=== PATIENT | male | born 1990 | race Caucasian/White ===

== ENCOUNTER 2025-10-27 10:43 | Outpatient (AMB) | payer OTHER, SELFPAY ==
[2025-10-27 11:03] VITALS: BP 164/100; PULSE 86; RESP 18; O2SAT 96; BMI 29.4
--- NOTE | 2025-10-27 11:03 | MHC.PC.OV ---
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 / High blood pressure RE Tube Balancer Required: No Accompanied by: Self / Same As Patient Allergies sulfamethoxazole (From Bactrim) Adverse Reaction (Severe, Verified 10/27/25 11:26) Unconscious trimethoprim (From Bactrim) Adverse Reaction (Severe, Verified 10/27/25 11:26) Unconscious Medication List - Last Reconciled 10/27/25 by JOY Zuniga guselkumab (Tremfya Pen) 200 mg subcut Q4W Tobacco use date assessed: 10/27/25 Dental Screening Dental Screen Date: 10/27/25 Did you have a dental visit in the last 12 months?: Yes Did you have a dental problem in the last 6 months where you did not have access to dental care?: No Was dental information given to patient?: Patient has dentist HPI DIETITIAN THERAPEUTIC / High blood pressure RE HPI Details Previous PCP: [facility] primary Last visit: while ago Last PE: over two years Specialist: dermatology, [facility] OBGYN:n/a Past medical history: htn/psoriasis Medications: Family HX: father htn, DM2, Problem: The patient is a 35 year old male presenting to establish primary care, manage elevated blood pressure, and for a wellness visit. He has not seen a primary care provider in over two years. The primary concern is elevated blood pressure, which he wishes to manage without medication. He monitors his blood pressure at home and noted a reading of 133/82 mmHg this morning. He reports his blood pressure was better two years ago and believes the change is diet-related, acknowledging a high salt intake. His father has a history of high blood pressure and type 2 diabetes. Last week, the patient was diagnosed with a sinus infection at an urgent care center and was prescribed amoxicillin. He has also been taking DayQuil for his symptoms, which are now improving. The patient has a history of psoriasis, for which he sees a hoop driving machine operator at [facility] via telehealth twice a year. He also requested comprehensive blood work, including a testosterone level check, reporting fatigue. Health Maintenance As this is an initial visit to establish care, baseline health screening is indicated. Comprehensive fasting blood work, including a testosterone level due to his complaint of fatigue, has been ordered. A follow-up visit for a complete physical and review of lab results is scheduled in seven weeks. 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 - Diet: Reports a preference for savory foods and acknowledges a high salt intake. - Caffeine: Drinks one cup of coffee each morning. - Alcohol: Reports drinking about six beers per week and is participating in October. - Exercise: Reports exercising four times a week. - Sleep: Reports sleeping well. Results - Labs: None reviewed. - Tests and Diagnostics: Patient reports a home blood pressure reading of 133/82 mmHg. [facility] Medical History (Updated 10/29/25 @ 00:07 by JOY Zuniga) Psoriasis HTN (hypertension) Family History Father Type 2 diabetes mellitus HTN (hypertension) Social History Alcohol intake: current Patient Tobacco Use Status: Never used Tobacco e-Cigarette/Vaping Use: Never Used Current occupational status: employed Cognitive needs: No Hearing needs: No Vision needs: No Questionnaire PHQ-9 Over the last 2 weeks, how often have you been bothered by any of the following problems? 1. Little interest or pleasure in doing things: not at all 2. Feeling down, depressed, or hopeless: not at all 3. Trouble falling or staying asleep, or sleeping too much: not at all 4. Feeling tired or having little energy: not at all 5. Poor appetite or overeating: not at all 6. Feeling bad about yourself - or that you are a failure or have let yourself or your family down: not at all 7. Trouble concentrating on things, such as reading the newspaper or watching television: not at all 8. Moving or speaking so slowly that other people could have noticed. Or the opposite - being so fidgety or restless that you have been moving around a lot more than usual: not at all 9. Thoughts that you would be better off or of hurting yourself in some way: not at all Total score: 0 Depression Screening Interpretation: Negative Depression Screening Done: Yes 77907 - PHQ-9 Billing: Yes Source: Developed by Drs. Kev Turner, Beth Figueroa, Mike Jaeger and colleagues, with an educational rosalinda from [employer]. Thrive Questionnaire Date Thrive assessed: 10/27/25 I am a: Patient What is your living situation today?: I have a steady place to live Within the past 12 months, did the food you bought not last and you didn't have the money to get more?: Never true Within the past 12 months, did you worry whether your food would run out before you got money to buy more?: Never true Do you have trouble paying for medicines?: No Do you have trouble getting transportation to medical appointments?: No Do you have trouble paying your heating and electricity bill?: No Do you have trouble taking care of your child, family member or friend?: No Do you have trouble with day-to-day activities such as bathing, preparing meals, shopping, managing finances, etc.?: No Are you currently unemployed and looking for a job?: No Are you interested in more education?: No Currently or been in a relationship where the following occur: No concerns reported THRIVE Score: 0 AUDIT C Alcohol Use Questionnaire (AUDIT-C) 1. How often do you have a drink containing alcohol?: 4 or more times a week 2. How many drinks containing alcohol do you have on a typical day when you are drinking?: 1 or 2 3. How often do you have six or more drinks on one occasion?: Less than monthly Total Score: 5 BRANDIE-7 AMB Questionnaire BRANDIE-7 Date BRANDIE - 7 assessed: 10/27/25 Feeling nervous, anxious, or on edge: 0 = Not at all Not being able to stop or control worryin = Not at all Worrying too much about different things: 0 = Not at all Trouble relaxin = Not at all Being so restless that it is hard to sit still: 0 = Not at all Becoming easily annoyed or irritable: 0 = Not at all Feeling afraid as if something awful might happen: 0 = Not at all Total BRANDIE-7 score (0-4 normal; 5-9 mild; 10-14 moderate; 15-21 severe): 0 Source: Developed by Drs. Kev Turner, Beth Figueroa, Mike Jaeger and colleagues, with an educational rosalinda from [employer]. BRANDIE-7 Assessment Billing BRANDIE-7 Assessment Tool: BRANDIE-7 Assessment 95778 Review of Systems Narrative Review of Systems - Constitutional: Reports fatigue. - Sleep: Denies sleep problems. - ENT: Reports improving symptoms of a recent sinus infection. - Musculoskeletal: Denies calf pain. Const Reports fatigue and Denies headache(s) Eyes Denies loss of vision ENT Denies vertigo, Denies dizziness, Denies headache(s) and Denies sore throat Card Denies chest pain, Denies leg edema and Denies lightheadedness Resp Denies cough, Denies hemoptysis and Denies wheezing GI Denies abdominal pain, Denies melena, Denies constipation, Denies diarrhea and Denies vomiting Denies dysuria, Denies urinary frequency and Denies urinary urgency Musc Denies arthralgias, Denies joint swelling, Denies numbness and Denies tingling Neuro Denies Abnormal speech present, Denies behavioral changes, Denies vertigo, Denies dizziness, Denies headache(s), Denies loss of vision, Denies memory loss, Denies numbness and Denies tingling Psych Denies anxiety, Denies behavioral changes, Denies depression, Denies memory loss and Denies panic attacks Endo Reports fatigue Lev/Lymph Denies easy bleeding and Denies easy bruising Aller/Immun Denies wheezing Physical exam (Primary Care) Vital Signs: Last Vital Signs Pulse 86 10/27/25 11:03 Resp 18 10/27/25 11:03 BP 148/100 H 10/27/25 11:16 Pulse Ox 96 10/27/25 11:03 Oxygen Delivery Method Room Air 10/27/25 11:03 BMI result Body Mass Index 29.4 Tobacco/Smoking Status: Tobacco use Status Tobacco use date assessed 10/27/25 10/27/25 11:17 Patient Tobacco Use Status Never used Tobacco 10/27/25 11:17 e-Cigarette/Vaping Use Never Used 10/27/25 11:17 PHQ-9: PHQ-9 Score PHQ-9: Total score 0 10/27/25 11:36 Depression Screening Interpretation: Negative Thrive Assessment: Date of Thrive Assessment Date Thrive assessed 10/27/25 10/27/25 11:17 Currently or been in a relationship where the following occur: No concerns reported Narrative Physical Exam - Cardiovascular: Heart auscultation reveals good heart sounds. - Abdomen: Soft, non-tender to gentle palpation, with bowel sounds present on auscultation. - Extremities: Calves are non-tender. Const General: healthy appearing, no acute distress, alert and awake Nutritional Appearance: well nourished Orientation/consciousness: oriented to person, oriented to place and oriented to time HENMT Ears: TM's normal bilaterally General nose exam: Normal nasal mucous membranes and turbinates present Eyes Conjunctivae: conjunctivae normal Sclerae: sclerae normal Pupils: Equal, round and reactive pupils present Neck Neck: Yes no lymphadenopathy and Yes no JVD Thyroid: Thyroid normal Carotids: no bruits Resp Effort & Inspection: normal respiratory effort and not tachypneic Auscultation: no crackles, no rales, no rhonchi and no wheezes Cardio Rate: regular rate Rhythm: regular rhythm Heart sounds: no murmurs and normal S1 and S2 GI Palpation (GI): Soft to palpation, nontender, no hepatomegaly and no splenomegaly Auscultation: normal bowel sounds Skin General skin exam: no rashes or lesions noted and dry skin Neuro General: oriented to person, oriented to place and oriented to time Cranial nerves: Yes Equal, round and reactive pupils present Speech: No Abnormal speech present Gait exam (Neuro): Normal gait present Motor exam (neuro): no tremor noted Extrem Right upper extremity: full ROM Left upper extremity: full ROM Right lower extremity: full ROM; no edema Left lower extremity: full ROM; no edema Psych Mental Status: mental status grossly normal Speech and movement: Normal speech and movement present Affect: normal affect Attitude: cooperative Thought process: Normal thought process present Coding Level of Care Code New Pt Level 4 (33049) Diagnoses Hypertension, unspecified type I10 Hypertension type: unspecified Fatigue, unspecified type R53.83 Fatigue type: unspecified Psoriasis L40.9 Acute sinusitis, recurrence not specified, unspecified location J01.90 Sinusitis location: unspecified location Recurrence: not specified as recurrent Additional Codes BRANDIE-7 Assessment Billing - BRANDIE-7 Assessment Tool: BRANDIE-7 Assessment 79251 ([id number]) PHQ-9 - 79896 - PHQ-9 Billing: Yes ([id number]) Time Spent (min) 39 Assessment & Plan Assessment & Plan (1) HTN (hypertension): Code(s): I10 - Essential (primary) hypertension Category: Medical Qualifiers: Hypertension type: unspecified Qualified Code(s): I10 - Essential (primary) hypertension Plan: The patient's elevated blood pressure is likely multifactorial, with contributing factors including a high-salt diet, alcohol consumption, job-related stress, and a family history of hypertension. He is motivated to attempt lifestyle modifications before initiating pharmacotherapy. A significant reduction in dietary sodium, continuation of regular exercise, and reduced alcohol intake were recommended. He was also advised he could try a nitric oxide supplement. He will monitor and log his blood pressure at home twice daily and bring his cuff to the next visit for calibration. A follow-up appointment is scheduled in four weeks to recheck his blood pressure. Potential first-line medications, such as lisinopril or losartan, were discussed should his blood pressure remain elevated (2) Fatigue: Code(s): R53.83 - Other fatigue Category: Medical Qualifiers: Fatigue type: unspecified Qualified Code(s): R53.83 - Other fatigue Plan: Reports ongoing increased tiredness. Labs ordered including testosterone levels to further evaluate. (3) Psoriasis: Code(s): L40.9 - Psoriasis, unspecified Category: Medical Plan: The patient has a known history of psoriasis. He will continue to follow up with his hoop driving machine operator for management. Continue Tremfya 200 mg subQ q.4 weeks (4) Acute sinusitis: Code(s): J01.90 - Acute sinusitis, unspecified Category: Medical Qualifiers: Sinusitis location: unspecified location Recurrence: not specified as recurrent Qualified Code(s): J01.90 - Acute sinusitis, unspecified Plan: The patient was recently diagnosed with a sinus infection at an urgent care and is reporting improvement in his symptoms on his current treatment. He will continue his course of amoxicillin as prescribed. Plan Plan Patient was informed and verbally consented to the use of an ambient scribe for clinic note documentation during this visit. 1. Hypertension The patient's elevated blood pressure is likely multifactorial, with contributing factors including a high-salt diet, alcohol consumption, job-related stress, and a family history of hypertension. He is motivated to attempt lifestyle modifications before initiating pharmacotherapy. A significant reduction in dietary sodium, continuation of regular exercise, and reduced alcohol intake were recommended. He was also advised he could try a nitric oxide supplement. He will monitor and log his blood pressure at home twice daily and bring his cuff to the next visit for calibration. A follow-up appointment is scheduled in four weeks to recheck his blood pressure. Potential first-line medications, such as lisinopril or losartan, were discussed should his blood pressure remain elevated. 2. Psoriasis The patient has a known history of psoriasis. He will continue to follow up with his hoop driving machine operator for management. 3. Acute Sinusitis The patient was recently diagnosed with a sinus infection at an urgent care and is reporting improvement in his symptoms on his current treatment. He will continue his course of amoxicillin as prescribed. Discussion Notes I had a detailed discussion with the patient regarding his elevated blood pressure. I explained the potential long-term risks, including effects on his kidneys, eyes, and heart, as well as the risk of stroke. We reviewed lifestyle modifications, including a low-salt diet, reduced alcohol intake, and continuing his exercise regimen, as the primary approach to management, which aligns with his preference to avoid medication. I also mentioned nitric oxide supplements as a natural option he could try. I outlined the plan for him to monitor his blood pressure at home, keep a log, and follow up in four weeks for a recheck. We discussed that if his blood pressure remains high, we would need to consider starting a medication, and I mentioned the risks versus benefits of doing so. I ordered fasting labs for a comprehensive health screen and scheduled a complete physical in seven weeks to review the results. Patient Instructions - Significantly reduce the salt in your diet to help lower your blood pressure. - Continue your regular exercise routine. - Work on reducing your alcohol intake. - You can try taking a nitric oxide supplement, which may help lower your blood pressure. - Check your blood pressure at home in the morning and at night. - Keep a written log of your blood pressure readings to bring to your next appointment. - Continue taking the amoxicillin for your sinus infection until you finish the prescription. - Please go to a lab to have your blood drawn. - Remember this is a fasting test, so do not eat or drink anything (except water) for 8 to 12 hours beforehand. - You have a follow-up visit in 4 weeks to check just your blood pressure. - You will have another visit in 7 weeks for a full physical and to review your lab results. - Bring your home blood pressure machine to your next appointment so we can compare its readings to ours. Orders: Orders Comprehensive Leroy. Panel Fast 10/27/25 R53.83 - Other fatigue, Z00.00 - Encounter for general adult medical examination without abnormal findings Lipid Panel 10/27/25 R53.83 - Other fatigue, Z00.00 - Encounter for general adult medical examination without abnormal findings Vitamin D 25-OH Total 10/27/25 R53.83 - Other fatigue, Z00.00 - Encounter for general adult medical examination without abnormal findings UA CC w/rflx Micro + Cult 10/27/25 R5. - Other fatigue, Z00.00 - Encounter for general adult medical examination without abnormal findings TSH reflex Free T4 10/27/25 R53.83 - Other fatigue, Z00.00 - Encounter for general adult medical examination without abnormal findings Testosterone, Free/Total 10/27/25 R53.83 - Other fatigue, Z00.00 - Encounter for general adult medical examination without abnormal findings Complete Blood Count Auto Diff 10/27/25 R53.83 - Other fatigue, Z00.00 - Encounter for general adult medical examination without abnormal findings
[2025-10-27 11:16] VITALS: BP 148/100
--- OUTSIDE RECORDS SUMMARY | 2025-10-27 12:04 | XMS_ITS | Clinical Summary ---
Author Organization [facility] Address [address] [place] [id number] Phone Care Team Providers Care [employer] Assistant [employer] Coach Name Role Phone Slava Painting MD Primary Care Provider Unavailable Allergies Active Allergy Reactions Criticality Noted Date Comments Sulfamethoxazole-Trimethoprim 2021 Medications triamcinolone acetonide 0.1 % ointment Apply topically 2 (two) times a day. Do not apply to genital region 454 g 2 Active hydrOXYzine (ATARAX) 25 MG tablet Take 1 tablet (25 mg total) by mouth 3 (three) times a day as needed for itching. 15 tablet 2 Active Social History Tobacco Use Types Packs/Day Years Used Date Smoking Tobacco: Some Days Smokeless Tobacco: Never Alcohol Use Standard Drinks/Week Comments Yes 0 (1 standard drink = 0.6 oz pur e alcohol) Education Answer Date Recorded Are you interested in more education? Not on tom e 02/23/2023 Are you concerned about learning? Not on file 02/23/2023 No 02/23/2023 No 02/23/2023 Digital Access Answer Date Recorded No 03/26/2023 No 03/26/2023 Reliable internet access at home? Not on file 03/26/2023 Device with a working camera? Not on file Sex and Gender Information Value Date Recorded Sex Assigned at Male 03/13/2022 6:37 PM EDT Legal Sex Male 6:31 PM EDT Gender Identity Male 03/13/2022 6:37 PM EDT Sexual Orientation Straight 03/13/2022 6: 37 PM EDT Last Filed Vital Signs Vital Sign Reading Time Taken Comments Blood Pressure 140/87 08/05/2022 5:11 PM EDT Pulse 89 08/05/2022 5:11 PM EDT Temperature 36.6 C (97.8 F) 08/05/2022 5:11 PM EDT Respiratory Rate 16 08/05/2022 5:11 PM EDT Oxygen Saturation 99% 08/05/2022 5:11 PM EDT Inhaled Oxygen Concentration - - Weight 78 kg (172 lb) 08/05/2022 2:40 PM EDT Height 170.2 cm (5' 7 ) 08/05/2022 2:40 PM EDT Body Mass Index 26.94 08/05/2022 2:40 PM EDT Plan of Treatment Health Maintenance Due Date Last Done Comments LIPID PANEL 1989 DEPRESSION SCREENING 2001 SMOKING Hx and SMOKELESS TOBACCO SCREENING 2002 HEPATITIS C SCREENING 2007 HIV ONE-TIME SCREENING (18-6 5 YEARS) 2007 PNEUMOCOCCAL VACCINES (0-49 years) (1 of 2 - PCV) 01/04/2008 INFLUENZA VACCINE (#1) 2025 COVID-19 VACCINE (1 - 2024-2 6 season) 2025 Adult Td,Tdap Booster 08/20/2030 08/20/2020 , 07/15/2014 HEPATITIS A VACCINES Aged Out 08/05/2014 No long er eligible based on patient's age to complete this topic HIB VACCINES Aged Out No longer eligi ble based on patient's age to complete this topic MENINGOCOCCAL VACCINES (ACWY) Aged Out No longer eligible based on patient's age to complete this topic MENINGOCOCCAL VACCINES (B) Aged Out N o longer eligible based on patient's age to complete this topic Medical Devices Not on file Insurance O [employer] S S S S S S PPO [employer] Care Teams [employer] 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 It is not the complete legal health record.[facility]
== END 2025-10-27 12:14 | disposition home or self-care (01) ==
LOC: HO.HMCH 10:44
DX: I10 Essential (primary) hypertension (principal); R53.83 Other fatigue; L40.9 Psoriasis, unspecified; J01.90 Acute sinusitis, unspecified

== ENCOUNTER → 2025-10-27 10:43 | Outpatient (BNVA) | payer OTHER, SELFPAY | DX: Z00.01 Encounter for general adult medical examination with abnormal findings (principal); J01.90 Acute sinusitis, unspecified; L40.9 Psoriasis, unspecified; R53.83 Other fatigue; I10 Essential (primary) hypertension; Z13.31 Encounter for screening for depression; Z13.39 Encounter for screening examination for other mental health and behavioral disorders | CPT/HCPCS: 96127 ==